=== PATIENT | male | born 2000 | race Caucasian/White ===

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

== ENCOUNTER 2018-12-04 20:23 | Emergency (ER) | payer OTHER ==
--- NOTE | 2018-12-04 20:36 | EDPHY ---
H & P Time Seen by Provider: 12/04/18 20:36 HPI/ROS: HPI CHIEF COMPLAINT: Abdominal pain HISTORY OF PRESENT ILLNESS: Otherwise healthy 18-year-old male, presents emergency sudden-onset left upper quadrant abdominal pain. He had associated nausea and dry heaving with this without any vomiting. Denies any diarrhea but has had some loose stools. States he was eating dinner tonight had chicken he had a few bites of chicken and then developed sudden-onset left upper quadrant sharp stabbing abdominal pain is still present. It has been going on for 30 min but has reduced. It does not radiate anywhere. Denies any chest pain or shortness of breath, denies pleuritic pain. He complains of worsening pain when he stands up in his left upper quadrant. On exam when you palpate his abdomen he has focal left upper quadrant epigastric pain with palpation reproducible on exam. Past Medical History: Acne, peptic ulcer disease Past Surgical History: No recent surgery Social History: Denies drugs alcohol tobacco. Family History: Noncontributory ROS REVIEW OF SYSTEMS: 10 Systems were reviewed and negative with the exception of the elements mentioned in the history of present illness. Exam Constitutional triage nursing summary reviewed, vital signs reviewed, awake/ alert. Eyes normal conjunctivae and sclera, EOMI, PERRLA. HENT normal inspection, atraumatic, moist mucus membranes, no epistaxis, neck supple/ no meningismus, no raccoon eyes. Respiratory clear to auscultation bilaterally, normal breath sounds, no respiratory distress, no wheezing. Cardiovascular rate normal, regular rhythm, no murmur, no edema, distal pulses normal. Gastrointestinal mild tender palpation left upper quadrant, no rebound, no guarding, normal bowel sounds, no distension, no pulsatile mass. Genitourinary no CVA tenderness. Musculoskeletal no midline vertebral tenderness, full range of motion, no calf swelling, no tenderness of extremities, no meningismus, good pulses, neurovascularly intact. Skin pink, warm, & dry, no rash, skin atraumatic. Neurologic awake, alert and oriented x 3, AAOx3, moves all 4 extremities equally, motor intact, sensory intact, CN II-XII intact, normal cerebellar, normal vision, normal speech. Psychiatric normal mood/affect. Heme/Lymph/Immune no lymphadenopathy. Differential Diagnosis: Differential diagnosis includes but is not limited to and in no particular order: Bowel obstruction, appendicitis, gallbladder disease, diverticulitis, colitis, enteritis, perforated viscus, gastritis, GERD , esophagitis, urinary tract infection, pyelonephritis, kidney stones Medical Decision Making: Plan for this patient IV establishment IV fluid bolus , GI cocktail, EKG and troponin, chest x-ray, CT scan abdomen pelvis with IV contrast to help delineate this left upper quadrant abdominal pain, rule out splenic infarct, gastritis, peptic ulcer disease, perforated ulcer Re-evaluation: EKG interpretation by me on record in [email or web address] system. Impression time of EKG 2055: Sinus rhythm rate of 55 no signs of acute ischemia. When I compare this EKG to his old EKG 06/09/2017 it is unchanged. No acute change in morphology. EKG performed due to abdominal pain no chest pain. Poc trop 0.00 CBC and CMP reviewed negative for abnormality. CT scan abdomen pelvis with IV contrast called to me by Dr. Gastelum. Negative for acute inflammatory process possible enteritis. Normal spleen. Chest x-ray reviewed negative. CT scan abdomen pelvis with IV contrast no acute inflammatory process possible enteritis. 2153 Patient re-evaluated this time: Abdomen soft. Mild tender palpation left upper quadrant, no peritoneal signs. Patient received a GI cocktail this time will re-evaluate. 2301: Patient re-evaluated this time resting comfortably. Abdomen is soft nontender on re-examination he feels much better after GI cocktail. I do believe his symptoms were due to gastritis versus peptic ulcer disease versus esophagitis given his acute onset of pain in his left upper quadrant did not have any chest pain or shortness of breath his EKG is stable from his previous EKG, troponin is negative. His chest x-ray is unrevealing Is CT scan abdomen pelvis with IV contrast showed enteritis is small area of his intestines however he has not had any diarrhea and no vomiting. He had acute onset of left upper quadrant abdominal pain while eating. This has resolved and improved after GI cocktail. He p.o. Challenge well here in the emergency room. His lab values reviewed and unremarkable no high white count, H&H are stable. Lipase normal, LFTs normal, electrolytes normal He would like to go home. On re-examination is abdomen is soft nontender. I do recommend he follows up with his primary care doctor Additionally we discussed return precautions return emergency room if develops worsening abdominal pain, fever, vomiting. Pepcid for 2 weeks Father at bedside during explanation. All their questions and concerns were answered. Source: Patient - Personal History Tetanus Vaccine Date: 2009 - Medical/Surgical History Hx Asthma: No Hx Chronic Respiratory Disease: No Hx Diabetes: No Hx Cardiac Disease: No Hx Renal Disease: No Hx Cirrhosis: No Hx Alcoholism: No Hx HIV/AIDS: No Hx Splenectomy or Spleen Trauma: No Other PMH: ADD, - Social History Smoking Status: Never smoked Constitutional: Initial Vital Signs Temperature (C) 36.6 C 12/04/18 20:31 Heart Rate 81 12/04/18 20:31 Respiratory Rate 18 12/04/18 20:31 Blood Pressure 164/97 H 12/04/18 20:31 O2 Sat (%) 99 12/04/18 20:31 O2 Delivery Mode Room Air Allergies/Adverse Reactions: No Known Allergies Allergy (Verified 12/04/18 20:29) Home Medications: Medication Instructions Recorded Claravis 12/04/18 Famotidine [Pepcid 20 MG (*)] 20 mg PO BID #30 tab 12/04/18 Medical Decision Making - Diagnostics Imaging Results: Imaging Impressions Abdomen CT 12/04/18 20:46 Impression: 1.Query enteritis. 2. The spleen appears normal. 3. See above report for additional findings. Results called and discussed with Sourav Manjarrez MD on 12/04/2018 at 21:43. Chest X-Ray 12/04/18 20:47 Impression: Negative frontal chest radiograph. - Data Points Laboratory Results: 12/04/18 12/04/18 12/04/18 20:52 20:50 20:48 POC Sodium 142 mEq/L mEq/L (135-145) POC Potassium 3.7 mEq/L mEq/L (3.3-5.0) POC Chloride 104.0 mEq/L mEq/L (97-110) POC Total CO2 27 mEq/L mEq/L (22-31) POC BUN 16 mg/dL mg/dL (7-23) POC Creatinine 1.1 mg/dL mg/dL (0.7-1.3) POC Glucose 96 mg/dL mg/dL (70-100) POC Calcium 9.8 mg/dL mg/dL (8.5-10.4) POC Total Bilirubin 0.5 mg/dL mg/dL (0.1-1.4) POC AST 32 IU/L IU/L (17-59) POC ALT 23 IU/L IU/L (21-72) POC Alk Phosphatase 123 IU/L IU/L (38-126) POC Troponin I 0.00 ng/mL ng/mL (0.00-0.08) POC Total Protein 7.2 g/dL g/dL (6.3-8.2) POC Albumin 4.1 g/dL g/dL (3.5-5.0) Lipase 82 IU/L IU/L (23-300) Medications Given: Discontinued Medications Al Hydroxide/Mg Hydroxide (Maalox Susp) 30 ml PO ONCE ONE Stop: 12/04/18 20:47 Last Admin: 12/04/18 21:45 Dose: 30 ml Hyoscyamine Sulfate (Levsin, Hyomax-Sl) 0.25 mg PO ONCE ONE Stop: 12/04/18 20:47 Last Admin: 12/04/18 21:45 Dose: 0.25 mg Sodium Chloride (Ns) 1,000 mls @ 0 mls/hr IV ONCE ONE PRN Reason: Wide Open Stop: 12/04/18 20:47 Last Admin: 12/04/18 20:57 Dose: 1,000 mls Lidocaine (Lidocaine 2% Viscous) 15 ml PO ONCE ONE Stop: 12/04/18 20:47 Last Admin: 12/04/18 21:45 Dose: 15 ml Point of Care Test Results: CBC CBC Collection Date 12/04/18 CBC Collection Time 20:59 WBC 7.44 RBC 5.11 HGB 15.8 HCT 45.7 PLT 227 Neut # 4.25 Neut 57.2 LYMPH # 2.42 LYMPH 32.5 MCV 89.4 Chemistry 12/04/18 12/04/18 20:52 20:48 POC Sodium 142 mEq/L mEq/L (135-145) POC Potassium 3.7 mEq/L mEq/L (3.3-5.0) POC Chloride 104.0 mEq/L mEq/L (97-110) POC Total CO2 27 mEq/L mEq/L (22-31) POC BUN 16 mg/dL mg/dL (7-23) POC Creatinine 1.1 mg/dL mg/dL (0.7-1.3) POC Glucose 96 mg/dL mg/dL (70-100) POC Calcium 9.8 mg/dL mg/dL (8.5-10.4) POC Total Bilirubin 0.5 mg/dL mg/dL (0.1-1.4) POC AST 32 IU/L IU/L (17-59) POC ALT 23 IU/L IU/L (21-72) POC Alk Phosphatase 123 IU/L IU/L (38-126) POC Troponin I 0.00 ng/mL ng/mL (0.00-0.08) POC Total Protein 7.2 g/dL g/dL (6.3-8.2) POC Albumin 4.1 g/dL g/dL (3.5-5.0) Urine Dip Collection Date 12/04/18 Collection Time 20:50 Specific [place] (1.002-1.030) 1.015 PH (5.0-7.5) 6.0 Leukocytes (Negative) Negative Nitrites (Negative) Negative Protein (Negative) Negative Glucose (Negative) Negative Ketones (Negative) Negative Urobilnogen (0.2-1.0 EU) 0.2 Bilirubin (Negative) Negative Blood (Negative) Negative Departure - Departure Disposition: Home, Routine, Self-Care Clinical Impression: Abdominal pain Condition: Good Instructions: Acute Abdominal Pain (ED) Additional Instructions: 1. Day diet over the next 24-48 hours 2. No spicy fatty greasy foods, no acidic food/drinks 3. Return to the emergency room if develops worsening abdominal pain, fever, vomiting 4. Please return emergency room if he develops worsening abdominal pain, fever, vomiting. 5. Pepcid as prescribed Referrals: Morena Arboleda MD [Primary Care Provider] - As per Instructions Prescriptions: Famotidine [Pepcid 20 MG (*)] 20 mg PO BID #30 tab
[2018-12-04] MEDS ORDERED: MAG HYDROX/AL HYDROX/SIMETH 30 ML UDCUP PO ONE (20:46)
[2018-12-04] MEDS ORDERED: LIDOCAINE 2% VISCOUS 15 ML UDCUP PO ONE (20:46)
[2018-12-04] MEDS ORDERED: HYOSCYAMINE SULFATE 0.125 MG TAB PO ONE (20:46)
[2018-12-04] MEDS ORDERED: NS 1,000 ML IV ONE (20:46)
[2018-12-04] MEDS ORDERED: IOPAMIDOL (ISOVUE-300) 100 ML BTL ONE (20:58)
[2018-12-04 22:53] VITALS: BP 118/65
--- NOTE | 2018-12-08 08:04 | CPEKG ---
Test Reason : OPEN Blood Pressure : / mmHG Vent. Rate : 055 BPM Atrial Rate : 053 BPM P-R Int : 145 ms QRS Dur : 113 ms QT Int : 452 ms P-R-T Axes : 063 077 055 degrees QTc Int : 433 ms Sinus rhythm Incomplete right bundle branch block Confirmed by Sourav Manjarrez ([id number]) on 12/08/2018 8:03:55 AM Referred By: Sourav Manjarrez Confirmed By:Sourav Manjarrez
== END 2018-12-04 23:07 | disposition home or self-care (01) ==
LOC: CED 20:23
DX: R10.12 Left upper quadrant pain (principal); E86.9 Volume depletion, unspecified
CPT/HCPCS: 71045-PO; 74177-PO; 80053-ER; 84484-ER; 85025-QW-ER; 96360-ER; 99285-ER; Q9967